=== PATIENT | female | born 2000 ===

== ENCOUNTER 2022-12-26 07:00 | Inpatient (IN) | payer SELFPAY ==
[~2022-12-26] VITALS: Ht 157 cm; Wt 69.0 kg
[2022-12-26] VITALS (38 sets, daily range): BP systolic 109–181; BP diastolic 56–103
[2022-12-26 09:01] LABS: CLARITY,URINE CLEAR; COLOR,URINE YELLOW
[2022-12-26 09:02] LABS: BACTERIA,URINE FEW /HPF; BILIRUBIN,URINE NEGATIVE (NEGATIVE); GLUCOSE, URINE (UA) NEGATIVE (NEGATIVE); KETONES,URINE NEGATIVE (NEGATIVE); LEUKOCYTE ESTERASE ,URINE 3+ (NEGATIVE); NITRITE,URINE NEGATIVE (NEGATIVE); PH,URINE 5.5 (5-9); PROTEIN,URINE NEGATIVE (NEGATIVE); RBC,URINE RARE /HPF
[2022-12-26] MEDS ORDERED: PREN1TAB19 PO (10:18)
[2022-12-26] MEDS ORDERED: MINERAL OIL 30 ML UDC TOP PRN (10:30)
[2022-12-26] MEDS ORDERED: LACTATED RINGERS 1,000 ML 500 ML IV PRN (10:30)
[2022-12-26] MEDS ORDERED: LIDOCAINE 2% w/EPI 1:200,000 20 ML VIAL INJ PRN (10:30)
[2022-12-26] MEDS: D5 LR 1,000 ML IV SOLN 1,000 ML IV SCH ×2 (10:47→17:31)
[2022-12-26 11:02] LABS: BASOPHILS % (AUTO) 0 % (0-10); EOSINOPHILS % (AUTO) 0 % (0-10); HEMATOCRIT 37 % (35-52); LYMPHOCYTES # (AUTO) 1.8 10^3/uL (1.0-4.0); LYMPHOCYTES % (AUTO) 16 % (12-44); MEAN CORPUSCULAR HEMOGLOBIN 28 pg (25-34); MEAN CORPUSCULAR HGB CONC 33 g/dL (32-36); MEAN CORPUSCULAR VOLUME 86 fL (80-99); MEAN PLATELET VOLUME 11.8 fL (9.0-12.2); MONOCYTES # (AUTO) 0.7 10^3/uL (0.0-1.0); MONOCYTES % (AUTO) 6 % (0-12); NEUTROPHILS # (AUTO) 8.7 10^3/uL (1.8-7.8); NEUTROPHILS % (AUTO) 77 % (42-75); PLATELET COUNT 197 10^3/uL (130-400); WHITE BLOOD COUNT 11.2 10^3/uL (4.3-11.0)
--- NOTE | 2022-12-26 12:42 | Labor Progress Note ---
Labor Progress Note Labor Progress Note Date Seen by Provider: Dec 26, 2022 Time Seen by Provider: 12:30 Subjective: Pt hurting with contractions, but denies concerns. Objective: Cervical exam: /- Consistency: soft Position: anterior Presentation: vertex heart tones: 130 beats per minute, moderate variability, reactive Tocometer: 3-4 ctx/10 minutes Assessment/Plan: Grace Jackson is a 22 /Para 1 /0 ,Gestational Age 40 (wks) 4 days here for spontaneous onset of labor. AROM done at time of exam, blood tinged fluid return. CEFM/TOCO Anesthesia: none Anticipate vaginal delivery. Vitals - Labs Vital Signs - I&O Vital Signs Date Time Temp Pulse Resp B/P (MAP) Pulse Ox O2 Delivery O2 Flow Rate FiO2 12/26/22 08:16 100 Room Air 12/26/22 07:54 60 132/81 (98) 100 Room Air 12/26/22 07:37 57 125/72 (89) 100 Room Air 12/26/22 07:22 36.1 64 18 141/86 (104) 97 Room Air Labs Laboratory Tests 12/26/22 08:35: Urine Color YELLOW, Urine Clarity CLEAR, Urine pH 5.5, Urine Specific [place] <=1.005, Urine Protein NEGATIVE, Urine Glucose (UA) NEGATIVE, Urine Ketones NEGATIVE, Urine Nitrite NEGATIVE, Urine Bilirubin NEGATIVE, Urine Urobilinogen 0.2, Urine Leukocyte Esterase 3+H, Urine RBC (Auto) 3+H, Urine RBC RARE, Urine WBC 10-25H, Urine Squamous Epithelial Cells 2-5, Urine Crystals NONE, Urine Bacteria FEWH, Urine Casts NONE, Urine Mucus NEGATIVE, Urine Culture Indicated YES 12/26/22 10:45: White Blood Count 11.2H, Red Blood Count 4.26, Hemoglobin 12.0, Hematocrit 37, Mean Corpuscular Volume 86, Mean Corpuscular Hemoglobin 28, Mean Corpuscular Hemoglobin Concent 33, Red Cell Distribution Width 14.6H, Platelet Count 197, Mean Platelet Volume 11.8, Immature Granulocyte % (Auto) 0, Neutrophils (%) (Auto) 77H, Lymphocytes (%) (Auto) 16, Monocytes (%) (Auto) 6, Eosinophils (%) (Auto) 0, Basophils (%) (Auto) 0, Neutrophils # (Auto) 8.7H, Lymphocytes # (Auto) 1.8, Monocytes # (Auto) 0.7, Eosinophils # (Auto) 0.0, Basophils # (Auto) 0.0, Immature Granulocyte # (Auto) 0.1, Syphilis Total Antibody Negative TIM MESSINA MD Dec 26, 2022 12:42
[2022-12-26] MEDS ORDERED: fentaNYL INJECTION 100 MCG/2 ML VIAL IVP PRN (14:30)
[2022-12-26] MEDS ORDERED: OXYTOCIN DRIP PRE-MIX 500 ML IV ONE ×2 (15:23→21:02)
[2022-12-26] MEDS ORDERED: METHYLERGONOVINE INJ 0.2 MG/ML AMP IM ONE (21:00)
[2022-12-26] MEDS ORDERED: fentaNYL INJECTION 100 MCG/2 ML VIAL IVP ONE (21:00)
[2022-12-26] MEDS ORDERED: fentaNYL INJECTION 100 MCG/2 ML VIAL ONE (21:04)
[2022-12-26] MEDS: OXYTOCIN DRIP PRE-MIX 500 ML IV SCH ×2 (21:22→21:23)
--- NOTE | 2022-12-26 21:39 | History & Physical-OB ---
OB - Chief Complaint & HPI Date/Time Date of Admission: Date of Admission: Dec 26, 2022 at 10:15 Date seen by a Provider: Dec 26, 2022 Time Seen by a Provider: 12:45 Chief Complaint/History OB-Reason for Admission/Chief: Induction of Labor Hx : 1 Expected Date of Delivery: Dec 22, 2022 Gestational Age in Weeks: 40 Gestational Age in Days: 4 History of Labs O+, Ab neg, Rub Imm HIV/RPR/HepB/C NR Normal 1 hr GTT GBS neg Allergies and Home Medications Allergies Coded Allergies: No Known Drug Allergies (Unverified , 12/26/22) Patient Home Medication List Home Medication List Reviewed: Yes Vit/Iron Fumarate/FA ( Vitamins Tablet) 28 Mg Iron-800 Mcg Tablet, 1 EACH PO DAILY, (Reported) Entered as Reported by: MEGAN ERAZO on 12/26/22 1018 Last Action: New Order OB - History Hx of Present Care: Yes Ultrasounds: Normal mid trimester US Obstetrical Complications: None Medical Complications: None Obstetrical History Hx : 1 Number of Living Children: 0 Hx Total # of Abortions (Spona: 0 Patient Past Medical History None Social History/Family History Alcohol Use: Denies Use Recreational Drug Use: No 2nd Hand Smoke Exposure: No Immunizations Influenza Vaccine Up-to-Date: No; Not Current Hepatitis A: No Hepatitis B: No Tetanus Booster (TDap): Less than 5yrs Rubella: immune RPR/VDRL: Negative GBS Status: Negative HBsAG: Negative OB - Admission Exam Physical Exam Vitals: Vital Signs 12/26/22 12/26/22 17:35 18:50 Temp 37.5 Pulse 57 Resp 20 B/P (MAP) 138/65 (89) Pulse Ox 99 O2 Delivery Room Air HEENT: NCAT Heart: Rhythm Normal Lungs: Clear Abdomen: Gravid Cervical Dilatation: 5cm Effacement: 75% Station: -1 Membranes: Ruptured Amniotic Fluid: Clear Heart Rate: 130's Accelerations: Accelerations Present Decelerations: No Decelerations Short Term Variability: Present 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 Variability: Average (6-25) Contractions on Admission: < 5 Minutes Apart Labs Laboratory Tests Test 12/26/22 08:35 12/26/22 10:45 Range/Units Urine Color YELLOW Urine Clarity CLEAR Urine pH 5.5 5-9 Urine Specific [place] <=1.005 1.016-1.022 Urine Protein NEGATIVE NEGATIVE Urine Glucose (UA) NEGATIVE NEGATIVE Urine Ketones NEGATIVE NEGATIVE Urine Nitrite NEGATIVE NEGATIVE Urine Bilirubin NEGATIVE NEGATIVE Urine Urobilinogen 0.2 < = 1.0 MG/DL Urine Leukocyte Esterase 3+ H NEGATIVE Urine RBC (Auto) 3+ H NEGATIVE Urine RBC RARE /HPF Urine WBC 10-25 H /HPF Urine Squamous Epithelial Cells 2-5 /HPF Urine Crystals NONE /LPF Urine Bacteria FEW H /HPF Urine Casts NONE /LPF Urine Mucus NEGATIVE /LPF Urine Culture Indicated YES White Blood Count 11.2 H 4.3-11.0 10^3/uL Red Blood Count 4.26 3.80-5.11 10^6/uL Hemoglobin 12.0 11.5-16.0 g/dL Hematocrit 37 35-52 % Mean Corpuscular Volume 86 80-99 fL Mean Corpuscular Hemoglobin 28 25-34 pg Mean Corpuscular Hemoglobin Concent 33 32-36 g/dL Red Cell Distribution Width 14.6 H 10.0-14.5 % Platelet Count 197 130-400 10^3/uL Mean Platelet Volume 11.8 9.0-12.2 fL Immature Granulocyte % (Auto) 0 % Neutrophils (%) (Auto) 77 H 42-75 % Lymphocytes (%) (Auto) 16 12-44 % Monocytes (%) (Auto) 6 0-12 % Eosinophils (%) (Auto) 0 0-10 % Basophils (%) (Auto) 0 0-10 % Neutrophils # (Auto) 8.7 H 1.8-7.8 10^3/uL Lymphocytes # (Auto) 1.8 1.0-4.0 10^3/uL Monocytes # (Auto) 0.7 0.0-1.0 10^3/uL Eosinophils # (Auto) 0.0 0.0-0.3 10^3/uL Basophils # (Auto) 0.0 0.0-0.1 10^3/uL Immature Granulocyte # (Auto) 0.1 0.0-0.1 10^3/uL Syphilis Total Antibody Negative Negative OB - Assessment/Plan/Diagnosis Assessment Assessment: active labor Admission Dx third Trimester 40 week gestation Admission Status: Inpatient Order (span 2 midnights) Reason for Inpatient Admission: Labor and post care Plan Other Plan 22 yo G1 @40.4 wga here in active labor Plan - Expectant management - GBS neg SAVAGE RODRÍGUEZ MD Dec 26, 2022 21:39
--- NOTE | 2022-12-26 21:46 | OB Labor & Delivery Record ---
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 No nuchal cord, body cord or shoulder dystocia Estimated Blood Loss: 200 ml Complications: None Condition: Stable Description of Procedure: The patient is a 22 year old female who presented in active labor. She was admitted and informed consent was obtained. Her labor course was remarkable for bradycardia at . She progressed to complete dilatation and began to push. She was then set up for delivery. The infant's head was delivered atraumatically in the LILLI position after mighty vac was applied for bradycardia. Vacuum was placed and suction was applied after making sure no maternal tissue was obstructing vaccum @ 2039 and 1 pull was applied and head and body was then delivered. The shoulders and remainder of the infant's body were then delivered without difficulty. Upon delivery, the infant was vigorous and placed on maternal chest and the mouth and nares were bulb suctioned and nursery nurse stimulated baby. After a delay of 2 mins cord was doubly clamped and cut by grandmother of infant and the infant remained on maternal chest. An intact placenta with 3-vessel cord delivered via Shabana and there was found to be minimal bleeding.~ Vigorous fundal massage was performed and the fundus was found to be firm. IV oxytocin was given. Examination of the vagina and perineum revealed a 3rd degree perinal laceration, bilateral vaginal wall sulcus tears and bilateral labial tears repaired in the usual fashion with 3-0 vicryl rapide suture. Following the repair, sponge, instrument and needle counts were correct. Mom and baby were both in stable condition in the labor suite. Vitals - Labs Vital Signs - I&O Vital Signs Date Time Temp Pulse Resp B/P (MAP) Pulse Ox O2 Delivery O2 Flow Rate FiO2 12/26/22 18:50 57 20 138/65 (89) Room Air 12/26/22 18:20 61 20 158/70 (99) Room Air 12/26/22 18:05 55 20 135/73 (93) Room Air 12/26/22 17:50 57 20 167/82 (110) Room Air 12/26/22 17:35 37.5 55 20 157/95 (115) 99 Room Air 12/26/22 17:20 58 18 135/70 (91) Room Air 12/26/22 17:06 65 18 142/81 (101) Room Air 12/26/22 16:40 57 18 135/82 (99) Room Air 12/26/22 16:15 57 18 140/81 (100) Room Air 12/26/22 15:40 37.0 56 18 121/67 (85) Room Air 12/26/22 15:00 53 18 126/77 (93) 12/26/22 14:40 50 18 153/87 (109) Room Air 12/26/22 13:25 36.9 54 18 120/68 (85) Room Air 12/26/22 12:55 62 18 117/78 (91) Room Air 12/26/22 12:26 53 18 135/73 (93) Room Air 12/26/22 11:54 36.5 50 18 150/87 (108) Room Air 12/26/22 10:00 36.1 50 18 100 Room Air 12/26/22 09:15 129/86 (100) Room Air 12/26/22 08:23 60 157/103 (121) 12/26/22 08:16 100 Room Air 12/26/22 08:09 60 18 128/75 (92) 100 Room Air 12/26/22 07:54 60 132/81 (98) 100 Room Air 12/26/22 07:37 57 125/72 (89) 100 Room Air 12/26/22 07:22 36.1 64 18 141/86 (104) 97 Room Air Labs Laboratory Tests 12/26/22 08:35: Urine Color YELLOW, Urine Clarity CLEAR, Urine pH 5.5, Urine Specific [place] <=1.005, Urine Protein NEGATIVE, Urine Glucose (UA) NEGATIVE, Urine Ketones NEGATIVE, Urine Nitrite NEGATIVE, Urine Bilirubin NEGATIVE, Urine Urobilinogen 0.2, Urine Leukocyte Esterase 3+H, Urine RBC (Auto) 3+H, Urine RBC RARE, Urine WBC 10-25H, Urine Squamous Epithelial Cells 2-5, Urine Crystals NONE, Urine Bacteria FEWH, Urine Casts NONE, Urine Mucus NEGATIVE, Urine Culture Indicated YES 12/26/22 10:45: White Blood Count 11.2H, Red Blood Count 4.26, Hemoglobin 12.0, Hematocrit 37, Mean Corpuscular Volume 86, Mean Corpuscular Hemoglobin 28, Mean Corpuscular Hemoglobin Concent 33, Red Cell Distribution Width 14.6H, Platelet Count 197, Mean Platelet Volume 11.8, Immature Granulocyte % (Auto) 0, Neutrophils (%) (Auto) 77H, Lymphocytes (%) (Auto) 16, Monocytes (%) (Auto) 6, Eosinophils (%) (Auto) 0, Basophils (%) (Auto) 0, Neutrophils # (Auto) 8.7H, Lymphocytes # (Auto) 1.8, Monocytes # (Auto) 0.7, Eosinophils # (Auto) 0.0, Basophils # (Auto) 0.0, Immature Granulocyte # (Auto) 0.1, Syphilis Total Antibody Negative SAVAGE RODRÍGUEZ MD Dec 26, 2022 21:46
[2022-12-26] MEDS ORDERED: BENZOCAINE/MENTHOL (DERMOPLAST) 56 ML CAN TP PRN (23:30)
[2022-12-26] MEDS ORDERED: WITCH HAZEL(TUCKS) 40 EA JAR TOP PRN (23:30)
[2022-12-26] MEDS: CATHETER FLUSH 10 ML SYR IV SCH (23:37)
[2022-12-27 00:06] VITALS: BP 115/59
[2022-12-27] MEDS: IBUPROFEN 600 MG TABLET PO SCH ×4 (00:10→18:41)
[2022-12-27] MEDS: ACETAMINOPHEN 500 MG TABLET PO SCH ×4 (00:10→18:44)
[2022-12-27 04:11] VITALS: BP 111/75
[2022-12-27] MEDS: PRENATAL VITAMIN TABLET PO SCH (06:30)
[2022-12-27 06:52] LABS: BASOPHILS % (AUTO) 0 % (0-10); EOSINOPHILS % (AUTO) 0 % (0-10); HEMATOCRIT 26 % (35-52); HEMOGLOBIN 8.7 g/dL (11.5-16.0); LYMPHOCYTES # (AUTO) 2.2 10^3/uL (1.0-4.0); LYMPHOCYTES % (AUTO) 10 % (12-44); MEAN CORPUSCULAR HEMOGLOBIN 28 pg (25-34); MEAN CORPUSCULAR HGB CONC 34 g/dL (32-36); MEAN CORPUSCULAR VOLUME 84 fL (80-99); MEAN PLATELET VOLUME 11.5 fL (9.0-12.2); MONOCYTES # (AUTO) 1.4 10^3/uL (0.0-1.0); MONOCYTES % (AUTO) 7 % (0-12); NEUTROPHILS % (AUTO) 83 % (42-75); PLATELET COUNT 181 10^3/uL (130-400); WHITE BLOOD COUNT 21.8 10^3/uL (4.3-11.0)
[2022-12-27] MEDS ORDERED: FERRIC CARBOXYMALTOSE INJ 750 MG in NS (IVPB) 250 ML 250 ML IV SCH (07:30)
[2022-12-27 10:20] VITALS: BP 109/63
[2022-12-27] MEDS: DOCUSATE SODIUM 100 MG CAPSULE PO SCH ×2 (10:29→21:24)
[2022-12-27] MEDS: CATHETER FLUSH 10 ML SYR IV SCH ×2 (10:29→14:00)
[2022-12-27 12:45] VITALS: BP 98/56
--- NOTE | 2022-12-27 13:21 | Postpartum Progress Note ---
Note Note Day # 1 Subjective: Patient is without complaints. Ambulating, voiding. Tolerating a regular diet without nausea or vomiting. Normal lochia. Pain is well controlled with oral pain medications. Objective: Vital Signs 12/26/22 12/27/22 21:18 12:45 Temp 36.8 Pulse 82 Resp 16 B/P (MAP) 98/56 (70) Pulse Ox 99 O2 Delivery Room Air Physical Exam: General - Alert and oriented, no apparent distress Abdomen - Soft, appropriately tender to palpation, non-distended, fundus firm at umbilicus Extremities - no edema Assessment: post- day # 1, status post vacuum assisted vaginal delivery with third degree perineal laceration repair acute blood loss anemia Recovering well, hemodynamically stable Plan: Routine care. Encourage breast feeding. Encourage ambulation. Ferrous sulfate supplementation. Plan for discharge tomorrow Vitals - Labs Vital Signs - I&O Vital Signs Date Time Temp Pulse Resp B/P (MAP) Pulse Ox O2 Delivery O2 Flow Rate FiO2 12/27/22 12:45 36.8 82 16 98/56 (70) 99 12/27/22 10:20 36.8 86 16 109/63 (78) 98 12/27/22 04:11 36.3 65 16 111/75 (87) 99 12/27/22 00:06 37.9 105 20 115/59 (77) 98 12/26/22 22:57 123 109/65 (80) 12/26/22 22:18 90 118/58 (78) 12/26/22 22:03 94 118/61 (80) 12/26/22 21:48 96 123/65 (84) 12/26/22 21:33 94 123/66 (85) 12/26/22 21:18 94 20 120/69 (86) 100 Room Air 12/26/22 21:04 105 122/63 (82) 12/26/22 20:50 131 128/72 (90) 12/26/22 20:35 134 140/59 (86) 12/26/22 20:22 109 153/78 (103) 12/26/22 20:04 64 160/70 (100) 12/26/22 19:50 85 144/85 (104) 12/26/22 19:47 37.2 76 132/56 (81) 12/26/22 19:20 61 145/63 (90) 12/26/22 19:05 61 181/80 (113) 12/26/22 18:50 57 20 138/65 (89) Room Air 12/26/22 18:20 61 20 158/70 (99) Room Air 12/26/22 18:05 55 20 135/73 (93) Room Air 12/26/22 17:50 57 20 167/82 (110) Room Air 12/26/22 17:35 37.5 55 20 157/95 (115) 99 Room Air 12/26/22 17:20 58 18 135/70 (91) Room Air 12/26/22 17:06 65 18 142/81 (101) Room Air 12/26/22 16:40 57 18 135/82 (99) Room Air 12/26/22 16:15 57 18 140/81 (100) Room Air 12/26/22 15:40 37.0 56 18 121/67 (85) Room Air 12/26/22 15:00 53 18 126/77 (93) 12/26/22 14:40 50 18 153/87 (109) Room Air 12/26/22 13:25 36.9 54 18 120/68 (85) Room Air I & O 12/27/22 07:00 Intake Total 2200 ml Balance 2200 ml Labs Laboratory Tests 12/27/22 06:40: White Blood Count 21.8H, Red Blood Count 3.07L, Hemoglobin 8.7#L, Hematocrit 26L , Mean Corpuscular Volume 84, Mean Corpuscular Hemoglobin 28, Mean Corpuscular Hemoglobin Concent 34, Red Cell Distribution Width 14.8H, Platelet Count 181, Mean Platelet Volume 11.5, Immature Granulocyte % (Auto) 1, Neutrophils (%) (Auto) 83H, Lymphocytes (%) (Auto) 10L, Monocytes (%) (Auto) 7, Eosinophils (%) (Auto) 0, Basophils (%) (Auto) 0, Neutrophils # (Auto) 18.0H, Lymphocytes # (Auto) 2.2, Monocytes # (Auto) 1.4H, Eosinophils # (Auto) 0.0, Basophils # (Auto) 0.0, Immature Granulocyte # (Auto) 0.1 TIM MESSINA MD Dec 27, 2022 13:21
[2022-12-27] MEDS ORDERED: METHYLERGONOVINE INJ 0.2 MG/ML AMP IM ONE (15:24)
[2022-12-27 17:05] VITALS: BP 99/54
[2022-12-27 21:00] VITALS: BP 118/58
[2022-12-28] MEDS: IBUPROFEN 600 MG TABLET PO SCH ×3 (00:34→12:09)
[2022-12-28] MEDS: ACETAMINOPHEN 500 MG TABLET PO SCH ×3 (00:34→12:09)
[2022-12-28 00:38] VITALS: BP 97/60
[2022-12-28 06:35] VITALS: BP 106/54
[2022-12-28] MEDS ORDERED: FERROUS SULFATE 325 MG (IRON) TABLET PO SCH (07:00)
[2022-12-28 08:00] VITALS: BP 119/55
[2022-12-28] MEDS ORDERED: FERR325T24 PO (09:47)
[2022-12-28] MEDS ORDERED: IBUP-844 PO (09:47)
--- NOTE | 2022-12-28 09:52 | Short Stay Summary ---
Discharge Summary Hospital Course Final Diagnosis: see Hospital Course Hospital Course Date of Admission: Dec 26, 2022 at 10:15 Admission Diagnosis : 40w4d IOL Family Physician/Provider: Amena Babcock MD Date of Discharge: 12/28/22 Discharge Diagnosis: s/p VAVD third degree laceration repair acute blood loss anemia Hospital Course: Routine course. Initiated iron for anemia. Follow up with Dr. Babcock in 6wk. Labs and Pending Lab Test: Laboratory Tests 12/26/22 08:35: Urine Color YELLOW, Urine Clarity CLEAR, Urine pH 5.5, Urine Specific [place] <=1.005, Urine Protein NEGATIVE, Urine Glucose (UA) NEGATIVE, Urine Ketones NEGATIVE, Urine Nitrite NEGATIVE, Urine Bilirubin NEGATIVE, Urine Urobilinogen 0.2, Urine Leukocyte Esterase 3+H, Urine RBC (Auto) 3+H, Urine RBC RARE, Urine WBC 10-25H, Urine Squamous Epithelial Cells 2-5, Urine Crystals NONE, Urine Bacteria FEWH, Urine Casts NONE, Urine Mucus NEGATIVE, Urine Culture Indicated Y ES 12/26/22 10:45: White Blood Count 11.2H, Red Blood Count 4.26, Hemoglobin 12.0, Hematocrit 37, Mean Corpuscular Volume 86, Mean Corpuscular Hemoglobin 28, Mean Corpuscular Hemoglobin Concent 33, Red Cell Distribution Width 14.6H, Platelet Count 197, Mean Platelet Volume 11.8, Immature Granulocyte % (Auto) 0, Neutrophils (%) (Auto) 77H, Lymphocytes (%) (Auto) 16, Monocytes (%) (Auto) 6, Eosinophils (%) (Auto) 0, Basophils (%) (Auto) 0, Neutrophils # (Auto) 8.7H, Lymphocytes # (Auto) 1.8, Monocytes # (Auto) 0.7, Eosinophils # (Auto) 0.0, Basophils # (Auto) 0.0, Immature Granulocyte # (Auto) 0.1, Syphilis Total Antibody Negative 12/27/22 06:40: White Blood Count 21.8H, Red Blood Count 3.07L, Hemoglobin 8.7#L, Hematocrit 26L, Mean Corpuscular Volume 84, Mean Corpuscular Hemoglobin 28, Mean Corpuscular Hemoglobin Concent 34, Red Cell Distribution Width 14.8H, Platelet Count 181, Mean Platelet Volume 11.5, Immature Granulocyte % (Auto) 1, Neutrophils (%) (Auto) 83H, Lymphocytes (%) (Auto) 10L, Monocytes (%) (Auto) 7, Eosinophils (%) (Auto) 0, Basophils (%) (Auto) 0, Neutrophils # (Auto) 18.0H, Ly mphocytes # (Auto) 2.2, Monocytes # (Auto) 1.4H, Eosinophils # (Auto) 0.0, Basophils # (Auto) 0.0, Immature Granulocyte # (Auto) 0.1 Microbiology 12/26/22 Urine Culture - Preliminary, Resulted Slight Growth Present Home Meds Active Reported Vitamins Tablet ( Vit/Iron Fumarate/FA) 28 Mg Iron-800 Mcg T ablet 1 Each PO DAILY Prescription for: Ferrous Sulfate 325mg daily Ibuprofen 6000mg every 6 hours as needed for pain/cramping. Assessment/Pt Instructions Follow up with Dr. Babcock in 6 weeks. Discharge Instructions Discharge Diet: No Restrictions Activity as Tolerated: Yes Discharge Physical Examination General Appearance: Alert, Oriented X3, Cooperative Psych/Mental Status: Mental Status NL, Mood NL Allergies: Coded Allergies: No Known Drug Allergies (Unverified , 12/26/22) Discharge Summary Date of Admission Dec 26, 2022 at 10:15 Date of Discharge BANG MEJIA DO Dec 28, 2022 09:52
[2022-12-28] MEDS: DOCUSATE SODIUM 100 MG CAPSULE PO SCH (11:00)
[2022-12-28] MEDS: PRENATAL VITAMIN TABLET PO SCH (11:00)
[2022-12-28 14:00] VITALS: BP 111/56
[2022-12-28 14:20] VITALS: BP 111/56
== END 2022-12-28 14:20 | disposition home or self-care (01) | DRG 768 ==
LOC: LDRP 07:00 → WSo 07:00 → LDRP 10:15
PROVIDERS: ADMIT Family Medicine; ATTEND Family Medicine
PROC: 10D07Z6 Extraction of Products of Conception, Vacuum, Via Natural or Artificial Opening (ICD-10-PCS; principal; 2022-12-26)
PROC: 0DQR0ZZ Repair Anal Sphincter, Open Approach (ICD-10-PCS; 2022-12-26)
PROC: 0KQM0ZZ Repair Perineum Muscle, Open Approach (ICD-10-PCS; 2022-12-26)
PROC: 0UQMXZZ Repair Vulva, External Approach (ICD-10-PCS; 2022-12-26)
DX: O48.0 Post-term pregnancy (principal); Z37.0 Single live birth; O70.20 Third degree perineal laceration during delivery, unspecified; O71.4 Obstetric high vaginal laceration alone; D62 Acute posthemorrhagic anemia; Z3A.40 40 weeks gestation of pregnancy; O70.0 First degree perineal laceration during delivery; O76 Abnormality in fetal heart rate and rhythm complicating labor and delivery; O90.81 Anemia of the puerperium
CPT/HCPCS: 36415; 81000; 85025; 86780; 86850; 86900; 86901; 87077; 87088; 99213